=== PATIENT | male | born 1990 | race American Indian/Alaskan Native ===

== ENCOUNTER 2024-04-19 09:04 | Emergency (ER) | payer OTHER, SELFPAY ==
[2024-04-19 09:18] VITALS: BP 152/86; PULSE 86; RESP 16; TEMP 36.9; O2SAT 100; BMI 25.8
--- NOTE | 2024-04-19 09:31 | PD.EDWOUND ---
ED Wound/Laceration-RME/HPI General Chief Complaint: Wound/Laceration Stated Complaint: LACERATION Time Seen by Provider: 04/19/24 09:09 Arrival date/time: 04/19/24 09:04 RME / HPI RME / HPI narrative: 34 year old male presents to the ED BIBA for evaluation of laceration to left hand. States he and several other guys were carrying a 300lb piece of glass when it shattered, cutting him on the left top hand. Accompanied by bleeding that was controlled with pressure dressing on scene. While in the ED reports pain with making a fist and numbness to bilateral sides of middle finger and to the bottom. No other injuries or complaints reported. Last tetanus ~ 1 year ago. Related Data Previous Rx's ?Medication ?Instructions ?Recorded cephalexin 500 mg capsule 500 mg PO QID #28 caps 04/19/24 Allergies Allergy/AdvReac Type Severity Reaction Status Date / Time No Known Allergies Allergy Unknown Uncoded 08/28/13 16:40 Review of Systems Review of Systems Narrative Review of Systems: Constitutional: DENIES; Fevers Eyes: DENIES; Loss of vision Head/Ear/Nose: DENIES; Loss of hearing Throat: DENIES; Dysphagia Cardiovascular: DENIES; Chest pain, dyspnea or syncope Respiratory: DENIES; Shortness of breath Gastrointestinal: DENIES; Rectal bleeding or melena. Genitourinary: DENIES; Dysuria (painful or difficult urination) Musculoskeletal: SEE HPI +L hand laceration. DENIES; Arthralgia (pain in a joint),; Skin: DENIES; Rash Neurological: DENIES; Loss of function or movement Psychiatric: DENIES; recent major life stressor, emotional problem, illicit drug use or abuse Endocrinology: DENIES; Weight change Hematologic/Lymphatic: DENIES; Abnormal bruising Allergic/Immunologic: DENIES; Urticaria (hives) Past Medical History Social History SMOKING STATUS: Current every day smoker ED Exam Narrative Physical exam: Physical Exam: General: The vital signs were reviewed. The patient is non-toxic, in no apparent distress and appears healthy with a patent airway, no respiratory distress and has no apparent circulatory problems. Head & Scalp: Normocephalic, atraumatic. Face: Appears normal and is without lesions, deformity. Ears: Left external pinna appears normal. Right external pinna appears normal. Eyes: The sclera is anicteric. No obvious photophobia. The Left and Right Orbit/Lid/Conjunctiva appears normal without swelling, discoloration or injection. Nose: The nose is without deformity, discharge or tenderness; Throat: Appears normal. The mucous membranes are pink and moist without exudates, redness or mass seen. The tongue appears normal. Neck: The neck is supple and no apparent mass or adenopathy. Chest: The chest wall is normal in size and symmetry and has no chest wall tenderness or crepitus. The patient displays normal ventilator effort without retractions, accessory muscle use and has adequate air movement bilaterally with no wheezes and no rales. Cardiovascular: Regular rate and rhythm; No murmurs, rubs, or gallops; Gastrointestinal: The abdomen appears normal. No obvious hernias or mass. The abdomen is soft and benign, non-distended, with no pain, no guarding and no rebound tenderness. Bowel sounds are present and normal sounding. No CVA tenderness. Genitourinary: Back/Spine: Extremities/Musculoskeletal/lymphatic: The left hand has a dressing in place over the proximal hand distal to the wrist which was removed and there is no active bleeding at the time of my evaluation of 0935 hrs. and there he have a stellate almost C shaped laceration with 3 legs of 3 cm 3 cm and 2 cm and the central portion is retracted distally underneath that do not appear to be violated. There is no foreign body seen or palpated. Patient has full extension of all the digits but does complain of numbness or tingling to the third finger pad. The bilateral upper and lower extremities are warm. There is no evidence of arterial insufficiency. There is no evidence of venous insufficiency/edema. The patient spontaneously moves bilateral upper and lower extremities with no pain and no limitation of movement. There is no apparent, injury or trauma. Skin: The skin is warm, dry and intact. No rashes. No petechia. No purpura. No abnormal bruising. The color is appropriate with no cyanosis. Mental status/Psychiatric: Mental status is appropriate for age. The patient has no apparent delusions, visual hallucinations, no apparent audible hallucinations. The patient has no apparent suicidal thoughts/ideation and no apparent homicidal thoughts/ideation. Neurological: The patient is awake, alert, interactive, cordial, cooperative and is oriented to name and situation. The patient follows commands and answers historical question with no impairment. There is no visual disturbance apparent. The pupils are equal and reactive bilaterally with normal eye movements and no diplopia The bilateral upper and lower extremities have normal strength, normal range of motion and normal functioning. The gait, station and balance appear to be baseline with no acute change Course Quality Measures none Orders Category Date Time Status Miscellaneous Nursing Order NOW Care 04/19/24 09:40 Active XR hand comp LT min 3V Stat Exams 04/19/24 09:40 Completed Bupivacaine Mpf 0.5% [Sensorcaine-Mpf Inj 0.5%] Med 04/19/24 09:40 Discontinued 10 ml INFL X1 ONE Tet,Diphth,Pertuss(Acell)-Tdap [Boostrix Vacc] Med 04/19/24 09:40 Discontinued 0.5 ml IMI .ONCE ONE ceFAZolin [Ancef] 1 gm Med 04/19/24 13:28 Discontinued Sterile Water 2.5 ml IM X1 Vital Signs Vital signs: Vital Signs Temperature 98.4 F 04/19/24 09:18 Pulse Rate 86 04/19/24 09:18 Respiratory Rate 16 04/19/24 09:18 Blood Pressure 152/86 H 04/19/24 09:18 Pulse Oximetry (%) 100 04/19/24 09:18 Oxygen Delivery Method Room Air 04/19/24 09:18 Pulse ox is 100% on room air which is adequate. 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 The left hand dorsum has an obvious flap of dermis with what appears to be some tendon synovial also retracted back with exposure of tendons. See the procedure note for more formal description. Patient's tetanus status is uncertain therefore he was updated today. Procedure note patient was verbally consented for exploration of the wound which he agreed. Prior to procedure patient displays full extension of all fingers and flexion with tenderness felt into the third digit with some vague numbness although he still has sensation there. Palpation of all the skin surfaces of the hand revealed no spicules or foreign body and patient felt no sharp poking sensations on palpation. There is 1 proximately 7 cm wound with retracted skin distal to the wound. Nurse got all the supplies in the room and the left hand was prepped with Betadine placed on a Leavitt stand with padding 0.5% bupivacaine was used to do a local. Patient had adequate anesthesia. Patient's wound was copiously irrigated with irrigated again multiple times throughout the procedure. Exploration of the wound and the depth of it revealed the extensor tendons on the third and fourth fingers. The third extensor tendon has a little laceration superficially to the tendon but the bulk of the tendon is intact. The tendon was left alone to heal by secondary intention. The synovial tissues overlying the tendon are lacerated with approximately 2 to 3 cm length and several interrupted stitches were used to tacked down with 4-0 Vicryl in interrupted fashion. Further irrigation was then applied. The subcutaneous tissue was reapproximated with a 4-0 Vicryl. Further irrigation was used then for total of 7 cm and a very irregularly shaped C shape or even J-shaped laceration where the skin and the concavity was retracted back. Note the patient actually took some pictures throughout the procedure and they are on his phone that way he can show it to the Workmen's Comp. doctor or hand surgeon at a later time. Multiple interrupted stitches were placed tacking down and trying to line up all the lines on the tattoo was precisely as possible. Patient tolerated that quite well it lined up quite nicely. Betadine was removed from the skin with saline to get as much of the Betadine off as possible. 4 x 4's were applied with gentle dressing. A palmar splint was placed to protect the hand and the patient is neurovascular intact post splint procedure. A gram of Rocephin verbal order was given to the nurse to give IM. Patient data External records reviewed:: EMS form Clinical information provided by:: patient Social determinants that could affect healthcare access:: substance use (vape pen smoker) Patient has the following chronic illnesses:: None How is presenting disease/condition affected by chronic disease/condition?: no chronic disease Evaluation data The following diagnostics were reviewed and interpreted by me:: radiology exam(s) Lab and/or radiology exams considered but not ordered:: None Interpretation Summary: Ordering Physician: Bright Silverio MD Date of Service: 04/19/24 Procedure(s): XR hand comp LT min 3V Accession Number(s): [id number] cc: Bright Silverio MD; Waqar Emery MD; CLINT HERNANDEZ~ Examination: Hand, left 3 views Technique: Hand AP, oblique, lateral 3 views Date and time of exam: April 19, 2024 0945 hrs. Indications: Laceration to the hand today, hand pain Findings: No acute fracture No dislocation No opaque foreign body Impression: No opaque foreign body Air in the soft tissue dorsum of the wrist and adjacent to the first carpometacarpal joint Dictated By: Waqar Emery MD Signed By: <Electronically signed by Waqar Emery MD in OV> 04/19/24 1022 Medications / Prescriptions Medications or Prescriptions considered but not ordered:: None Medication administrations:: Medication Administration History Discontinued Medications Bupivacaine HCl (Bupivacaine Mpf 0.5% 10 Ml Vial) 10 ml INFL X1 ONE Stop: 04/19/24 09:41 Last Admin: 04/19/24 10:24 Dose: 10 ml Documented By: EVAN Comments: GIVEN TO OPROVIDER TO ADMINISTER Cefazolin Sodium 1 gm/ Sterile (Water 2.5 ml) 0 gm IM X1 ONE Stop: 04/19/24 13:29 Last Admin: 04/19/24 13:54 Dose: 1 dose Documented By: ARMANDO Diphtheria/Tetanus/Acell Pertussis (Diphth,Pertuss(Acell),Tet Vac 0.5 Ml Syr) 0.5 ml IMi .ONCE ONE Stop: 04/19/24 09:41 Last Admin: 04/19/24 10:23 Dose: 0.5 ml Documented By: TM See above Consultations Consultation(s) initiated? (list below): No Diagnosis Wound Differential Diagnosis: laceration, abscess, abrasion and avulsion of skin Most likely diagnosis given after review of the tests above:: Laceration of hand, left Laceration of extensor tendon of hand Admission Indicated Admission indicated?: not indicated Admission Request Was there a request for admission?: No Disposition Plan Disposition Plan: Discharge Discharge Attestation Discharge Attestation: The patient and all family members were given an opportunity to ask questions and understood the discharge instructions. Discharge instructions specifically effects, indications for sooner follow up or return to the emergency department, and the expected course of current diagnosis. Patient condition: Stable Discharge Plan Plan Patient Disposition: HOME (Self Care) Prescriptions/Referrals Prescriptions/Med Rec: New cephalexin 500 mg capsule 500 mg PO QID Qty: 28 0RF Referrals: Clint Hernandez PA-C [Primary Care Provider] - In 1 week Problem List Clinical Impression: Laceration of hand, left, Laceration of extensor tendon of hand Patient/Caregiver Discharge Instructions Education Materials: ED Laceration Hand with ... Additional Instructions: You have a deep space laceration of the hand involving the tendon space with a superficial laceration or partial laceration of the extensor tendons of the third and fourth digits. The bulk of the tendon is intact. The synovial space was violated by the laceration and was closed with 4-0 Vicryl and the skin was closed with 5-0 nylon. Despite irrigating the wound aggressively there is still a risk for infection. Formal exploration of the wound revealed no foreign body and no glass was seen on x-ray either. A splint was placed to protect the fingers and the extensor tendons. You to follow-up with your Workmen's Comp. doctor in 1 day for recheck and referral to a hand surgeon. Showed the pictures you took hopefully they will have clarity for the hand surgeon. Note the extensor tendons were not sutured as they were well aligned and minimally violated the tendon. If your hand is getting infected with increasing redness swelling or purulent drainage/pus please come back or see your hand surgeon right away. Keep the splint on to protect it for the next 5 to 7 days. Follow the advice of the Workmen's Comp. doctor and specialist as needed. Will be no work until cleared by your doctor. Keep your hand elevated with couple pillows at night when sleeping. You can use ibuprofen 400 to 600 mg every 6 hours as needed for pain. Take it with food avoid upsetting her stomach Print Language: Luxembourgish Stand Alone Forms: [facility] Award Info., Patient Portal Info Letter
--- NOTE | 2024-04-19 09:40 | XR_ITS ---
Examination: Hand, left 3 views Technique: Hand AP, oblique, lateral 3 views Date and time of exam: April 19, 2024 0945 hrs. Indications: Laceration to the hand today, hand pain Findings: No acute fracture No dislocation No opaque foreign body Impression: No opaque foreign body Air in the soft tissue dorsum of the wrist and adjacent to the first carpometacarpal joint
[2024-04-19] MEDS: DIPHTH,PERTUSS(ACELL),TET VAC 0.5 ML SYR IMi (10:23)
[2024-04-19] MEDS: BUPIVACAINE MPF 0.5% 10 ML VIAL INFL (10:24)
[2024-04-19] MEDS: ceFAZolin 1 GM, Sterile Water 2.5 ML IM (13:54)
[2024-04-19 15:30] VITALS: BP 147/82; PULSE 88; RESP 18; TEMP 37; O2SAT 99
== END 2024-04-19 15:45 | disposition home or self-care (01) ==
PROVIDERS: Emergency Provider Emergency Medicine; PCP Physician Assistant
DX: S66.329A Laceration of extensor muscle, fascia and tendon of unspecified finger at wrist and hand level, initial encounter (principal); W25.XXXA Contact with sharp glass, initial encounter; Z23 Encounter for immunization
CPT/HCPCS: 12004; 29126; 73130; 90471; 90715; 96372; 99283; A4216; J0690; J3490

== ENCOUNTER 2024-04-20 19:41 | Emergency (ER) | payer OTHER, SELFPAY ==
[2024-04-20 19:42] VITALS: BMI 26.5
[2024-04-20 19:48] VITALS: BP 118/76; PULSE 113; RESP 18; TEMP 37.2; O2SAT 97
--- NOTE | 2024-04-20 21:19 | PD.EDHAND ---
Upper Extremity Injury RME/HPI General Chief Complaint: Hand/Wrist Problems Stated Complaint: LT HAND INJURY Time Seen by Provider: 04/20/24 21:01 Source: patient Arrival date/time: 04/20/24 19:41 34 year old male presents to the ED for complaints of unable to extend his third digit of his left hand. Yesterday he did present to the emergency department for a laceration to the dorsum of his left hand. States he and several other guys were carrying a 300lb piece of glass when it shattered, cutting him on the left top hand. Laceration was repaired by another ED provider, patient had a full range of motion of the fingers however today he was trying to carry a box of pizza when he heard a snap of that finger. Since then he is unable to extend his middle finger. No other injuries or complaints reported. Patient is right-hand dominant. Mode of arrival: ambulatory Related Data Previous Rx's ?Medication ?Instructions ?Recorded cephalexin 500 mg capsule 500 mg PO QID #28 caps 04/19/24 Allergies Allergy/AdvReac Type Severity Reaction Status Date / Time No Known Allergies Allergy Unknown Uncoded 08/28/13 16:40 Review of Systems Review of Systems Systems Reviewed: All systems reviewed, normal except as documented Narrative Review of Systems: Gen: No fever, no chills, no weight loss EYES: No discharge, no visual changes, no pain HEENT: No ear pain, no congestion, no sore throat PULM: No shortness of breath, no cough, no congestion CV: No chest pain, no dyspnea on exertion, no palpitations GI: No nausea, no vomiting, no diarrhea, no pain, no constipation : No frequency, no urgency, no dysuria Musc/skel: + Unable to extend third digit left hand pain, no back pain Skin: No rash Psyc: No hallucinations, no depression Heme/Lymph: No easy bleeding or bruising tendencies Neuro: No weakness, no headache ED Exam Narrative Physical exam: General: Sittiing in Exam table in no acute distress, answering questions appropriately HENT: normocephalic, atraumatic, EOMI, PERRLA, moist mucous membranes Chest: chest wall is nontender Cardiac: regular rate and rhythm, normal S1 and S2, no murmurs, rubs, or gallops, capillary refill ?2 seconds Pulmonary: clear to auscultation bilaterally, no wheezing, crackles, or rhonchi Abdominal: active bowel sounds, soft, nontender, nondistended Neuro: A&OX3, CN II-XII intact, sensation grossly intact bilaterally in UE and LE. Skin: Closed laceration dorsum left hand. Ext: Left hand third digit unable to extend Course Quality Measures none Vital Signs Vital signs: Vital Signs Temperature 98.9 F 04/20/24 19:48 Pulse Rate 113 H 04/20/24 19:48 Respiratory Rate 18 04/20/24 19:48 Blood Pressure 118/76 04/20/24 19:48 Pulse Oximetry (%) 97 04/20/24 19:48 Oxygen Delivery Method Room Air 04/20/24 19:48 Extremity Injury MDM Narrative MDM Narrative:: 34 year old male presents to the ED for complaints of unable to extend his third digit of his left hand. Yesterday he did present to the emergency department for a laceration to the dorsum of his left hand. States he and several other guys were carrying a 300lb piece of glass when it shattered, cutting him on the left top hand. Laceration was repaired by another ED provider, patient had a full range of motion of the fingers however today he was trying to carry a box of pizza when he heard a snap of that finger. Since then he is unable to extend his middle finger. No other injuries or complaints reported. Patient is right-hand dominant. Upon arrival patient is conversive, comfortable. In no pain. Patient is concerned because he is unable to extend his third digit of his left hand. Patient sutures intact. No signs of infection, no swelling. I did go ahead and reviewed the patient's visit yesterday, x-ray. At this time I feel the patient needs a hand specialty consultation. Which is not available in our hospital. Patient agrees with plan. We did place a call out to [facility] hand specialty-Case discussed. Pending evaluation. Dr. Mary from hand surgery will seen him as an outpatient at his clinic tomorrow. Patient data External records reviewed:: [facility] previous records Clinical information provided by:: patient Social determinants that could affect healthcare access:: none Patient has the following chronic illnesses:: None How is presenting disease/condition affected by chronic disease/condition?: no chronic disease Evaluation data The following diagnostics were reviewed and interpreted by me:: lab results Lab and/or radiology exams considered but not ordered:: None and notes reviewed from yesterday. Interpretation Summary: Lacerated extensor tendon left hand. Medications / Prescriptions Medications or Prescriptions considered but not ordered:: no Medication administrations:: no Consultations Consultation(s) initiated? (list below): No Diagnosis Upper Extremity Injury Differential Diagnosis: sprain and strain of wrist, fracture of wrist, dislocation of finger and other (laceration of Extensor digitorium tendon) Most likely diagnosis given after review of the tests above:: laceration of Extensor digitorium tendon Admission Indicated Admission indicated?: indicated Explain why admission is indicated or not indicated:: Higher level of care transfer or outpatient follow-up for hand specialty. Due to extensor digitorium laceration. Admission Request Was there a request for admission?: No Disposition Plan Disposition Plan: Transfer Discharge Plan Plan Patient Disposition: HOME (Self Care) Patient condition on transfer: Stable Prescriptions/Referrals Prescriptions/Med Rec: No Action cephalexin 500 mg capsule 500 mg PO QID Qty: 28 0RF Referrals: Bobbi Echols PA-C ([facility]) [Primary Care Provider] - In 1 week Problem List Clinical Impression: Laceration of extensor tendon of hand Patient/Caregiver Discharge Instructions Education Materials: ED Tendon Laceration Additional Instructions: Thank you for coming to the emergency department tomorrow. Dr. Duke, will see you at the hand clinic tomorrow. This is located at [address] [place] [address]. The phone number is [phone]. Ensure you take the packet and disc with you to your appointment. Please show up at approximately 9 AM to see the hand surgeon. Return to the emergency department for any other symptoms, fever, increasing pain, or any other concerns. Please ensure that the splint does not get wet. Print Language: Jordanian Stand Alone Forms: [facility] Award Info., Patient Portal Info Letter
--- NOTE | 2024-04-20 22:57 | EDNOTE_ITS ---
Emergency Room Addendum Addendum Narrative: Care assumed from Deidra Bhardwaj NP. Past medical, surgical, social and family history reviewed. Vitals and home medications reviewed. Results and treatment plan discussed. I will assume the care of the patient at this time and will follow the patient, pending callback from [facility]. Please refer to the emergency department record for history and examination from initial visit. [id number]: [facility] called back, stating Dr. Mary from hand surgery will seen him as an outpatient at his clinic tomorrow.
== END 2024-04-20 23:14 | disposition home or self-care (01) ==
PROVIDERS: Emergency Provider Emergency Medicine; PCP Nurse Practitioner Family
DX: S66.32 Laceration of extensor muscle, fascia and tendon of other and unspecified finger at wrist and hand level (principal); W25.XXXD Contact with sharp glass, subsequent encounter
CPT/HCPCS: 99281